=== PATIENT | male | born 1960 | race African-American/Black ===

== ENCOUNTER 2017-03-17 18:36 | Emergency (ER) | payer MEDICAID ==
[~2017-03-17] VITALS: Ht 172.7 cm; Wt 80.0 kg
[2017-03-17] MEDS ORDERED: LIDOCAINE HCL 1% 20ML VIAL (Pyxis) INJ MC ONE (19:45)
[2017-03-17] MEDS ORDERED: BACITRACIN ZINC OINT UDPKT TOP ONE (19:45)
[2017-03-17 22:25] VITALS: BP 144/74
== END 2017-03-17 22:25 | disposition home or self-care (01) ==
LOC: ER 19:55
DX: S01.81XA Laceration without foreign body of other part of head, initial encounter (principal); F17.200 Nicotine dependence, unspecified, uncomplicated; Y08.89XA Assault by other specified means, initial encounter; Y93.89 Activity, other specified; Y99.8 Other external cause status; Y92.89 Other specified places as the place of occurrence of the external cause
CPT/HCPCS: 12011; 99283; J3490; X7700; Z7610

== ENCOUNTER 2022-03-02 11:17 | Emergency (ER) | payer MEDICAID ==
[~2022-03-02] VITALS: Ht 185.4 cm; Wt 85.0 kg
[2022-03-02 11:34] VITALS: BP 176/112
[2022-03-02] MEDS ORDERED: IBUP-2029 MT (14:09)
== END 2022-03-02 14:18 | disposition home or self-care (01) ==
LOC: ER 11:17
DX: S93.491A Sprain of other ligament of right ankle, initial encounter (principal); R26.2 Difficulty in walking, not elsewhere classified; X58.XXXA Exposure to other specified factors, initial encounter; Y93.67 Activity, basketball; Y92.310 Basketball court as the place of occurrence of the external cause
CPT/HCPCS: 73600; 99283

== ENCOUNTER 2025-01-05 16:07 | Emergency (ER) | payer MEDICAID ==
[~2025-01-05] VITALS: Ht 185.4 cm; Wt 86.0 kg
[~2025-01-05 16:07] MED LIST: IBUP-2029 MT; METO-539 PO; PRED10TA MT
[2025-01-05 16:12] VITALS: O2SAT 97
[2025-01-05 18:01] LABS: HEMATOCRIT. 38.4 % (42.0-52.0); HEMOGLOBIN. 12.5 g/dL (14.0-18.0); MEAN CORPUSCULAR HEMOGLOBIN 32.7 pg (28.0-32.0); MEAN CORPUSCULAR HGB CONC 32.5 g/dL (31.0-37.0); MEAN CORPUSCULAR VOLUME 100.9 fL (80.0-94.0); MEAN PLATELET VOLUME 6.8 fl (7.4-10.4); PLATELET 337 x1000/uL (130-400); RED BLOOD CELL COUNT 3.81 mill/uL (4.7-6.1); RED CELL DISTRIBUTION WIDTH 15.6 % (11.6-14.6); WHITE BLOOD COUNT 10.4 x1000/uL (4.5-11.0)
[2025-01-05 18:02] LABS: DIFFERENTIAL COMMENT 1
[2025-01-05 18:17] LABS: CHLORIDE 104 mEq/L (98-107); POTASSIUM 3.8 mEq/L (3.5-5.1); SODIUM 135 mEq/L (136-145)
[2025-01-05 18:18] LABS: CARBON DIOXIDE 19 mEq/L (21-32)
[2025-01-05 18:19] LABS: CALCIUM 9.5 mg/dL (8.7-10.4)
[2025-01-05 18:23] LABS: GLUCOSE 108 mg/dL (70-105); PLATELET ESTIMATE NORMAL
[2025-01-05 18:24] LABS: UREA NITROGEN BLOOD < 5 mg/dL (9-23)
[2025-01-05 18:44] LABS: TROPONIN I HIGH SENSITIVITY < 4 ng/L (3.0-53)
[2025-01-05] MEDS: LIDOCAINE HCL 1% 20ML VIAL INFIL ONE (19:53)
[2025-01-05 21:21] LABS: PROTHROMBIN TIME 10.8 sec (9.6-11.0)
[2025-01-05] MEDS ORDERED: NALOXONE HCL 0.4MG/ML VIAL IV PRN (21:30)
[2025-01-05] MEDS: HYDROCODONE/ACETAMINOPHEN 10/325MG TABLET PO PRN (21:45)
[2025-01-05 21:56] LABS: CLARITY URINE CLEAR (CLEAR); COLOR URINE YELLOW (YELLOW); GLUCOSE URINE NEGATIVE (NEGATIVE); KETONES URINE NEGATIVE (NEGATIVE); LEUKOCYTE ESTERASE URINE NEGATIVE (NEGATIVE); NITRITE URINE NEGATIVE (NEGATIVE); OCCULT BLOOD URINE NEGATIVE (NEGATIVE); PROTEIN URINE TRACE (NEGATIVE); SPECIFIC GRAVITY URINE 1.016 (1.005-1.030); UROBILINOGEN URINE 0.2 E.U./dL (0.2-1.0)
[2025-01-05 22:06] LABS: BACTERIA URINE NONE SEEN; RBC URINE NONE SEEN /hpf (0-2); SQUAMOUS EPITHELIAL CELL URINE NONE SEEN /lpf (RARE/1+); WBC URINE 0-2 /hpf (0-2)
[2025-01-05 23:10] VITALS: BP 172/97; PULSE 99; RESP 18; TEMP 37.6; O2SAT 98
[2025-01-05 23:58] LABS: BODY FLUID RBC 8750 /cu mm (0-2000); BODY FLUID WBC 27750 /cu mm (0-200)
[2025-01-06 07:00] LABS: BODY FLUID MONOCYTES 3 %
== END 2025-01-05 23:44 | disposition admitted as inpatient to this hospital (09) ==
LOC: ER 16:07 → EDBEDREQTM 21:04 → EDBEDREQ 21:04 → ER 23:44
DX: M25.562 Pain in left knee (principal); M17.12 Unilateral primary osteoarthritis, left knee; F10.90 Alcohol use, unspecified, uncomplicated; R60.9 Edema, unspecified; Z79.899 Other long term (current) drug therapy; Y90.9 Presence of alcohol in blood, level not specified
CPT/HCPCS: 80048; 81003; 83690; 85025; 85610; 86850; 86900; 86901; 87070; 87205; 84484; 89050; 89060; 36415; 73562; 93005; 20610; 99285; Z7610